=== PATIENT | female | born 1990 | race African-American/Black ===

== ENCOUNTER 2024-11-11 18:14 | Emergency (ER) | payer SELFPAY ==
[~2024-11-11] VITALS: Ht 172.7 cm; Wt 76.7 kg
[2024-11-11 18:28] VITALS: TEMP 98.5
[2024-11-11] MEDS ORDERED: FERR-72 PO (18:29)
[2024-11-11 19:35] VITALS: BP 130/91; PULSE 97; RESP 15; O2SAT 99
[2024-11-11 19:44] LABS: PLATELET COUNT (AUTO) 299 K/uL (150-450); RED BLOOD CELL COUNT(AUTO) 4.02 MIL/uL (4.00-5.20); RED CELL DISTRIBUTION WIDTH 14.0 % (11.5-14.5); WHITE BLOOD COUNT (AUTO) 8.7 K/uL (4.5-11.0)
[2024-11-11 19:50] LABS: CALCIUM, TOTAL 8.5 mg/dL (8.8-10.5); CREATININE 0.80 mg/dL (0.60-1.30); GLOMERULAR FILTR. RATE CALC > 60 mL/min (>60); GLUCOSE,RANDOM 111 mg/dL (70-110); SODIUM SERUM 138 mmol/L (136-145); UREA NITROGEN, BLOOD 9 mg/dL (7-18)
[2024-11-11] MEDS ORDERED: IBUP-1554 PO (19:57)
[2024-11-11] MEDS ORDERED: ACET-66 PO (19:57)
[2024-11-11] MEDS ORDERED: GUAIFDM PO (19:57)
[2024-11-11 20:02] LABS: TROPONIN I-HIGH SENSITIVITY 4 ng/L (<51)
[2024-11-11] MEDS: GuaiFENesin/D-METHORPHAN [SUGAR-FREE] 200-20MG/10 ML SYRUP UDCUP PO ONE (20:05)
[2024-11-11] MEDS: IBUPROFEN 600 MG TABLET PO ONE (20:05)
[2024-11-11] MEDS: ACETAMINOPHEN 500 MG TABLET PO ONE (20:05)
== END 2024-11-11 20:15 | disposition home or self-care (01) ==
LOC: EMS 18:17
DX: R07.89 Other chest pain (principal); R09.81 Nasal congestion; R09.89 Other specified symptoms and signs involving the circulatory and respiratory systems
CPT/HCPCS: 71045; 80048; 84484; 84703; 85025; 93005; 99285; 36415-L1; 36415-TC